=== PATIENT | female | born 1965 | race Caucasian/White ===

== ENCOUNTER 2019-05-13 08:02 | Emergency (ER) | payer OTHER ==
[~2019-05-13] VITALS: Ht 170.2 cm; Wt 81.6 kg
[2019-05-13 08:15] VITALS: BP 134/80
[2019-05-13] MEDS ORDERED: ACETAMINOPHEN 500 MG TAB PO ONE (08:30)
== END 2019-05-13 09:44 | disposition home or self-care (01) ==
LOC: EDSEX 08:02 → ER 08:02 → EDBD 08:02 → ER 09:44
DX: S52.502A Unspecified fracture of the lower end of left radius, initial encounter for closed fracture (principal); R51 Headache; I10 Essential (primary) hypertension; V43.62XA Car passenger injured in collision with other type car in traffic accident, initial encounter; Y93.89 Activity, other specified; Y92.410 Unspecified street and highway as the place of occurrence of the external cause; Y99.8 Other external cause status
CPT/HCPCS: 29125; 70450; 73110